=== PATIENT | male | born 1990 | race Caucasian/White ===

== ENCOUNTER 2017-11-12 18:56 | Inpatient (IN) | payer OTHER ==
[~2017-11-12] VITALS: Ht 177.8 cm; Wt 77.1 kg
[2017-11-12 19:15] VITALS: BP 105/84
[2017-11-12 19:54] LABS: HEMATOCRIT 47.8 % (42.0-52.0); HEMOGLOBIN 16.6 gm/dL (14.0-18.0); MCH 33.8 pg (26.0-34.0); MCHC 34.7 g/dL (28.0-37.0); MCV 97.5 fL (80.0-100.0); MPV 7.5 fl. (7.2-11.1); NUCLEATED RBCS 0 /100WBC; PLATELET COUNT* 160 thou/uL (150-400); RBC 4.91 mil/uL (4.50-6.00); RDW-CV 12.5 % (10.5-14.5); WBC 12.7 thou/uL (4.0-11.0)
[2017-11-12 20:14] LABS: POTASSIUM 3.8 mmol/L (3.5-5.1)
[2017-11-12 20:19] LABS: ABSOLUTE LYMPHOCYTES 0.5 thou/uL (0.8-5.3); ABSOLUTE MONOCYTES 0.3 thou/uL (0.0-1.2); ABSOLUTE NEUTROPHILS 11.9 thou/uL (1.6-8.1); ALBUMIN 4.3 g/dL (3.4-5.0); ATYPICAL LYMPHS 2 %; PLATELET ESTIMATE ADEQUATE; TOTAL BILIRUBIN 1.2 mg/dL (<0.1-1.0); TOTAL PROTEIN 8.3 g/dL (6.4-8.2)
[2017-11-12 22:10] LABS: URINE BILIRUBIN NEGATIVE (Negative); URINE BLOOD 1+ (Negative); URINE CLARITY CLEAR; URINE COLOR YELLOW; URINE GLUCOSE-RANDOM NEGATIVE (Negative); URINE KETONES TRACE (Negative); URINE LEUKOCYTES-REFLEX NEGATIVE (Negative); URINE NITRITE-REFLEX NEGATIVE (Negative); URINE PROTEIN 1+ (Negative); URINE UROBILINOGEN 0.2 E.U./dl (0.2-1.0)
[2017-11-12 22:19] LABS: BACTERIA-REFLEX None Seen /HPF (None Seen); CASTS None Seen /LPF (None Seen); SQUAMOUS 0-3 Few /LPF (0-3); URINE RBC 0-2 Rare /HPF (0-2); URINE WBC-REFLEX None Seen /HPF (0-5)
[2017-11-12 22:20] LABS: CRYSTALS None Seen /LPF (None Seen)
[2017-11-12 22:49] VITALS: BP 161/102
[2017-11-13] LABS: AMP/METHAMP Negative (Negative); BARBITURATES Negative (Negative); BENZODIAZEPINES Negative (Negative); COCAINE Negative (Negative); METHADONE Negative (Negative); OPIATES Negative (Negative); PCP Negative (Negative); THC Negative (Negative)
[2017-11-13 03:46] VITALS: BP 160/100
--- NOTE | 2017-11-13 06:57 | NUR ---
PATIENT ARRIVED ON UNIT AT 2300. ALERT AND ORIENTED TIMES FOUR. MOTHER AT BEDSIDE. PAIN MEDICATION IS NOT ENOUGH TO GIVE HIM RELIEF. NOTIFIED AND INCREASE IN PAIN MEDICATION ORDER RECEIVED. COMPLIANT WITH NPO STATUS. TOOK A SHOWER AND STATES THAT THIS HELPS. NO SKIN ISSUES. NURSING ASSESSMENT AND HOURLY ROUNDING COMPLETED DOCUMENTED
[2017-11-13 08:30] VITALS: BP 165/98
[2017-11-13 09:59] LABS: ALBUMIN 3.3 g/dL (3.4-5.0); CALCIUM 7.5 mg/dL (8.5-10.1); CREATININE 0.9 mg/dL (0.6-1.3); DIRECT BILIRUBIN 0.8 mg/dL (<0.1-0.3); MAGNESIUM 1.2 mg/dL (1.8-2.4); POTASSIUM 3.7 mmol/L (3.5-5.1); TOTAL BILIRUBIN 2.2 mg/dL (<0.1-1.0); TOTAL PROTEIN 6.7 g/dL (6.4-8.2)
[2017-11-13 16:00] VITALS: BP 142/105
--- NOTE | 2017-11-13 17:47 | NUR ---
ASSUMED CARES OF PT AT 0700. PT A&O X4, PAIN IN ABD R/T ALCOHOL PANCREATITIS. PAIN MANAGED WITH IVP DILAUDID Q2 HRS PRN. LCTAB, HRRR PER AUSCULTATION. NEW IV STARTED IN RIGHT AC 22 GAUGE AFTER LOSS OF ORIGINAL IV. NS AT 250 ML/HR, PRESENTLY HELD FOR BANANA BAG INFUSING AT 100 ML/HR. ZOFRAN FOR NAUSEA PRN. HYPERTENSIVE, NOTIFIED, WAITING ORDERS. AFEBRILE, CIWA Q HR X 8 COMPLETED, SEE DOCUMENTATION. LABS MONITORED. PT UP AT ANGELLA AT THIS TIME, STABLE. MILD ITCHING VERBALIZED. FAMILY IN ROOM WITH PT MOST OF SHIFT. SKIN INTACT. WILL CONTINUE TO MONITOR PT FOR ALCOHOL WITHDRAWAL SYMPTOMS. NPO AT THIS TIME, ICE CHIPS AND SMALL SIPS OF WATER ALLOWED. WILL CONTINUE TO MONITOR PT STATUS. HOURLY ROUNDING CONTINUES.
--- NOTE | 2017-11-13 19:16 | NUR ---
PT REMAINS STABLE, CONSTANT PAIN IN GENERALIZED ABD, SOME RADIATING TO BACK R/T ACUTE PANCREATITIS. PT REPORTS HEAVY ALCOHOL USE. PT B/P ELEVATED/HYPERTENSIVE, REPORTED TO MD VIA YOU CALL, WAITING ORDERS. NO ALCOHOL WITHDRAWAL SYMPTOMS OTHER THAN SOME ITCHING REPORTED BY PT, PT STATED IT IS TOLERABLE AT THIS TIME. FAMILY AT BEDSIDE MOST OF DAY. O2 RA WNL. HR TACHYCARDIA VIA AUSCULTATION, REPORTED TO MD VIA YOU CALL. IV IN RIGHT AC PATENT WITH FLUIDS INFUSING, BANANA BAG AT 80 ML/HR, ONE OF THREE PRESENTLY INFUSING. REPORT TO BIT TAPPER FOR CONTINUED CARES AND MONITORING.
--- NOTE | 2017-11-13 19:24 | NUR ---
MD ORDERS FOR PT HYPERTENSION ADDED TO MAR, METOPROLOL AND HYDRALAZINE. VS TO BE TAKEN AND MEDS GIVEN ORDERED.
[2017-11-13 20:00] VITALS: BP 138/97
[2017-11-14] VITALS (11 sets, daily range): BP systolic 105–154; BP diastolic 62–104
[2017-11-14 04:42] LABS: HEMATOCRIT 39.9 % (42.0-52.0); MCH 33.9 pg (26.0-34.0); MCHC 34.6 g/dL (28.0-37.0); MCV 98.1 fL (80.0-100.0); MPV 8.4 fl. (7.2-11.1); RBC 4.07 mil/uL (4.50-6.00); RDW-CV 12.4 % (10.5-14.5); WBC 9.8 thou/uL (4.0-11.0)
[2017-11-14 04:54] LABS: HEMOGLOBIN 13.8 gm/dL (14.0-18.0)
[2017-11-14 05:26] LABS: ALBUMIN 2.8 g/dL (3.4-5.0); CALCIUM 7.1 mg/dL (8.5-10.1); CREATININE 0.9 mg/dL (0.6-1.3); MAGNESIUM 1.4 mg/dL (1.8-2.4); POTASSIUM 3.5 mmol/L (3.5-5.1); TOTAL BILIRUBIN 1.9 mg/dL (<0.1-1.0); TOTAL PROTEIN 5.5 g/dL (6.4-8.2)
--- NOTE | 2017-11-14 05:43 | NUR ---
DR. RHODES NOTIFIED OF PATIENTS CHANGE IN MENTAL STATUS D/T ALCOHOL WITHDRAWAL. PATIENT TRANSFERRED TO ICU AT APPROXIMATELY [address] RHODES. REPORT CALLED TO ICU NURSE. NURSING TO CONTINUE TO MONITOR.
[2017-11-14 11:18] LABS: ALBUMIN 2.9 g/dL (3.4-5.0); DIRECT BILIRUBIN 1.2 mg/dL (<0.1-0.3); TOTAL BILIRUBIN 1.9 mg/dL (<0.1-1.0); TOTAL PROTEIN 5.6 g/dL (6.4-8.2)
--- NOTE | 2017-11-14 19:06 | NUR ---
RECEIVED REPORT FROM LIBERTAD WARNER. ASSESSMENT CHARTED. AFEBRILE. PT VITALS STABLE. ADEQAUTE URINE OUTPUT. PT IN RESTRAINTS. STILL CONFUSED AND COMABATIVE. REPORT GIVEN TO LIBERTAD CHÁVEZ.
[2017-11-14 22:15] LABS: BE 0.5 mmol/L (-2 to +3); HCO3 22.7 mmol/L (22.0-26.0); PCO2 29.7 mmHg (35.0-45.0); pH 7.501 (7.340-7.450)
[2017-11-14 22:16] LABS: PO2 146.6 mmHg (75.0-100.0)
[2017-11-15] VITALS (10 sets, daily range): BP systolic 89–145; BP diastolic 46–89
--- NOTE | 2017-11-15 00:48 | NUR ---
PT WAS INTUBATED AT 2014. VENT SETTINGS 600VT, 14 RATE, 5 PEEEP, FIO2 TITRATE. PT EXTREMELY AGGRESSIVE AND VIOLENT. RESTRAINTS NOT HOLDING PT. SPOKE WITH DR. COTA. DR. COTA RECOMMENDED INTUBATION TO ASSIST WITH WITHDRAW. MOTHER AT BEDSIDE. INTUBATION WAS EXPLAINED TO MOTHER, SHE STATED SHE UNDERSTOOD THE NEED TO INTUBATE. UNABLE TO ASSESS CIWA WHILE PT INTUBATED
[2017-11-15 04:27] LABS: HEMATOCRIT 35.7 % (42.0-52.0); HEMOGLOBIN 12.6 gm/dL (14.0-18.0); MCHC 35.4 g/dL (28.0-37.0); MCV 98.9 fL (80.0-100.0); MPV 8.5 fl. (7.2-11.1); RBC 3.61 mil/uL (4.50-6.00); RDW-CV 12.4 % (10.5-14.5); WBC 5.1 thou/uL (4.0-11.0)
[2017-11-15 04:59] LABS: ALBUMIN 2.1 g/dL (3.4-5.0); CREATININE 0.8 mg/dL (0.6-1.3); MAGNESIUM 1.5 mg/dL (1.8-2.4); TOTAL BILIRUBIN 1.3 mg/dL (<0.1-1.0); TOTAL PROTEIN 5.3 g/dL (6.4-8.2)
[2017-11-15 08:35] LABS: BE 0.2 mmol/L (-2 to +3); HCO3 25.9 mmol/L (22.0-26.0); PCO2 46.1 mmHg (35.0-45.0); PO2 70.4 mmHg (75.0-100.0); pH 7.367 (7.340-7.450)
--- NOTE | 2017-11-15 08:41 | NUR ---
RECEIVED REPORT FROM LIBERTAD CHÁVEZ. ASSESSMENT CHARTED. AFEBRILE. PT SEDATED AND INTUBATED ON VENT. PROPOFOL, ATIVAN AND FENTANYL GTT INFUSING. MEDS GIVEN. REPLACING ELECTROLYTES. WILL CONTINUE TO MONITOR.
[2017-11-15 11:12] LABS: HEMOGLOBIN 12.9 gm/dL (14.0-18.0); MCH 33.7 pg (26.0-34.0); MCHC 33.9 g/dL (28.0-37.0); MCV 99.5 fL (80.0-100.0); MPV 8.2 fl. (7.2-11.1); NUCLEATED RBCS 0 /100WBC; PLATELET COUNT* 90 thou/uL (150-400); RBC 3.82 mil/uL (4.50-6.00); RDW-CV 12.5 % (10.5-14.5); WBC 5.6 thou/uL (4.0-11.0)
[2017-11-15 11:17] LABS: URINE BLOOD 2+ (Negative); URINE CLARITY CLEAR; URINE COLOR DARK YELLOW; URINE GLUCOSE-RANDOM NEGATIVE (Negative); URINE LEUKOCYTES-REFLEX NEGATIVE (Negative); URINE NITRITE-REFLEX NEGATIVE (Negative); URINE PROTEIN 2+ (Negative); URINE SPECIFIC GRAVITY >= 1.030 (1.005-1.030)
[2017-11-15 11:21] LABS: ACETEST (KETONE CONFIRMATORY) Large (Negative); ICTOTEST (BILI CONFIRMATORY) Positive (Negative); URINE BILIRUBIN 2+ (Negative); URINE KETONES 3+ (Negative)
[2017-11-15 11:23] LABS: APTT 32.9 Seconds (25.0-31.3); INR 1.1; PROTIME 10.8 Seconds (9.20-11.50)
[2017-11-15 11:26] LABS: MUCUS 4-6 Moderate strn/LPF (None Seen)
[2017-11-15 11:27] LABS: COARSE GRANULAR CASTS 0-3 Few /LPF (None Seen); CRYSTALS None Seen /LPF (None Seen); FINE GRANULAR CASTS 0-3 Few /LPF (None Seen); HYALINE CASTS 0-3 Few /LPF (None Seen); SQUAMOUS 0-3 Few /LPF (0-3)
[2017-11-15 11:28] LABS: URINE WBC-REFLEX 6-15 Few /HPF (0-5)
[2017-11-15 11:29] LABS: MAGNESIUM 1.5 mg/dL (1.8-2.4); PHOSPHORUS* 1.9 mg/dL (2.5-4.9)
[2017-11-15 11:29] LABS: BACTERIA-REFLEX 1-9 Few /HPF (None Seen)
[2017-11-15 11:44] LABS: ABSOLUTE LYMPHOCYTES 1.2 thou/uL (0.8-5.3); ABSOLUTE MONOCYTES 0.3 thou/uL (0.0-1.2); ABSOLUTE NEUTROPHILS 4.1 thou/uL (1.6-8.1); METAMYELOCYTES 1 %; PLATELET ESTIMATE DECREASED
--- NOTE | 2017-11-15 19:54 | NUR ---
CONSULTED TO PLACE PICC FOR ICU PT ORDERED. CONSENT OBTAINED PRIOR TO ARRIVAL, PT SEDATED ON VENT. PT ASSESSED WITH ULTRASOUND AND CECIL BASILIC FOUND TO BE WIDELY PATENT. LINE TRIMMED TO 45 CM AND PLACED PER FACILITY POLICY WITH 3 CM EXTERNAL. LINE PLACEMENT CONFIRMED WITH 3CG AND RELEASED FOR IMMEDIATE USE. PT BED LOWERED TO LOWEST POSITION, RESTRAINT RE-APPLIED ON RIGHT WRIST. NO ACUTE DISTRESS NOTED.
[2017-11-16] VITALS (13 sets, daily range): BP systolic 96–116; BP diastolic 50–63
[2017-11-16 05:03] LABS: BE -6.4 mmol/L (-2 to +3); HCO3 20.6 mmol/L (22.0-26.0); PO2 79.7 mmHg (75.0-100.0)
[2017-11-16 05:13] LABS: HEMATOCRIT 34.4 % (42.0-52.0); HEMOGLOBIN 11.8 gm/dL (14.0-18.0); MCH 34.2 pg (26.0-34.0); MCHC 34.4 g/dL (28.0-37.0); MCV 99.4 fL (80.0-100.0); MPV 8.5 fl. (7.2-11.1); RBC 3.46 mil/uL (4.50-6.00); RDW-CV 12.2 % (10.5-14.5); WBC 7.8 thou/uL (4.0-11.0)
[2017-11-16 05:22] LABS: ALBUMIN 1.8 g/dL (3.4-5.0); CALCIUM 7.4 mg/dL (8.5-10.1); CREATININE 1.2 mg/dL (0.6-1.3); POTASSIUM 3.4 mmol/L (3.5-5.1); TOTAL BILIRUBIN 1.6 mg/dL (<0.1-1.0); TOTAL PROTEIN 5.4 g/dL (6.4-8.2)
--- NOTE | 2017-11-16 10:15 | NUR ---
PT TRANSFERRED TO ICU ON 11/14 AND INTUBATED. REMAINS ON VENT. NO FAMILY HERE AT THIS TIME. CASE MGT TO CONTINUE TO FOLLOW.
--- NOTE | 2017-11-16 11:49 | CON ---
[address] [address] CONSULTATION Name: WILL MARQUIS Room: [address] IN M.R.#: [id number] Admission: 11/12/17 Attend Phys: Nguyễn Millard MD Discharge: Date of : 90 Report #: [id number] THIS REPORT FOR: //name// CC: MARILIA physician/PCP Nguyễn Millard DATE OF SERVICE: 11/16/2017 INFECTIOUS DISEASE CONSULTATION ATTENDING PHYSICIAN: Nguyễn Millard M.D. REASON FOR EVALUATION: Acute pancreatitis in the setting of ethanol excess, also has onset of nosocomial-related fevers. HISTORY OF PRESENT ILLNESS: Chart reviewed, the patient examined. This is a 27-year-old without significant medical history, although he is a heavy drinker, presented with abdominal-related pain that had been going on for several days. He did have associated diarrhea and episodes of vomiting. He noted, apparently at that time, had previous similar type pains. At that point, he had no fevers. He was admitted. On evaluation, he had a markedly elevated lipase. Imaging showed findings most consistent with acute pancreatitis, without evidence of peripancreatic or pancreatic abscess or pseudocyst. He was actually on the floor; however, it became apparent he was perhaps withdrawn and he became combative. He was transferred to the ICU and intubated to protect his airway. He did have a temperature elevation to 102 degrees Fahrenheit. At this point, he is sedated on the vent, started on Zosyn and levofloxacin. ALLERGIES: SULFA, WHICH CAUSES A RASH. CURRENT MEDICATIONS: Include enoxaparin, Zosyn, ipratropium and albuterol inhaler, levofloxacin, p.r.n. analgesics, antiemetics, metoprolol and famotidine. PAST MEDICAL HISTORY: Otherwise insignificant. SOCIAL HISTORY: Nonsmoker, heavy ethanol. FAMILY HISTORY: Noncontributory. REVIEW OF SYSTEMS: Not obtainable. PHYSICAL EXAMINATION: GENERAL: He is sedated on the vent. He is in mild distress. He does not have any sequelae that suggest chronic liver disease. VITAL SIGNS: Temperature 98.3, pulse 113, blood pressure 96/62 and respiratory [facility] [address] [place] [address] CONSULTATION Name: WILL MARQUIS Room: [address]#: [id number] Admission: 11/12/17 Attend Phys: Nguyễn Millard MD Discharge: Date of : 90 Report #: [id number] rate is 14. SKIN: Warm, appears somewhat pale. NECK: There seems to be some resistance. I do not think there is any overt meningismus. LUNGS: Diminished, few crackles. HEART: Tachycardic. I do not appreciate any murmur. ABDOMEN: Somewhat firm. I do not think there is overt rigidity or peritoneal signs. GENITOURINARY: Deferred. RECTAL: Deferred. LABORATORY DATA: Chest x-ray, possible small right pleural effusion and some basilar infiltrates. Blood cultures sterile thus far. Sputum cultures pending. Gram stain with mixed ricco. Electrolytes: Sodium 143, potassium 3.4, chloride 109, bicarb 22, anion gap of 12, BUN and creatinine 8 and 1.2 and glucose of 91. AST 144; ALT of 87 and total bilirubin was peaked at 2.2, now 1.6. Albumin 1.8, total protein 5.4. Lactic acid 0.7. Prealbumin 14.6. CBC: White count of 7.8, H and H 11.8 and 34.4 and platelets of 121,000. ABGs: A pH of 7.260, pCO2 of 47.0 and pO2 of 79.7 on 40%. TSH is 0.705. Sputum culture is pending. Urinalysis, 6-15 white cells. HIV screen was nonreactive. ASSESSMENT: Severe pancreatitis secondary to ethanol, may well have had previous episodes. Based on history I garnered, certainly risk for infectious complications with fevers may be attributed to the pancreatitis and likely a degree of hepatitis as well, can exclude pneumonitis. We will continue empiric therapy at this point and try to wean off as allowed, going through his withdrawal protocol. I will monitor expectantly. <ELECTRONICALLY SIGNED> By: Conor Guevara MD 11/16/17 1149 [id number] Guevara MD /nt
[2017-11-16 13:08] LABS: HEPATITIS B SURFACE AG Negative (Negative)
[2017-11-16 13:08] LABS: HBsAG-EMPLOYEE EXPOSURE Negative (Negative)
--- NOTE | 2017-11-16 18:45 | NUR ---
PT CARE ASSUMED AT 1030. ASSESSMENT CHARTED. VSS THROUGHOUT THE SHIFT. TOLERATING TF WITHOUT ANY RESIDUAL. Q2H TURNS TO MAINTAIN SKIN INTEGRITY. PT'S FEET AND HANDS NOTED TO BE RED AND WARM, PATIENT FLUSHED. THIS INFORMATION GIVEN TO MD WITH NO NEW ORDERS. WILL CONTINUE TO MONITOR.
[2017-11-17] VITALS (16 sets, daily range): BP systolic 118–148; BP diastolic 67–97
[2017-11-17 04:15] LABS: HEMOGLOBIN 11.2 gm/dL (14.0-18.0); MCV 99.8 fL (80.0-100.0); RBC 3.31 mil/uL (4.50-6.00); RDW-CV 12.5 % (10.5-14.5); WBC 7.3 thou/uL (4.0-11.0)
[2017-11-17 04:39] LABS: ALBUMIN 1.8 g/dL (3.4-5.0); CALCIUM 7.8 mg/dL (8.5-10.1); CREATININE 1.1 mg/dL (0.6-1.3); MAGNESIUM 2.1 mg/dL (1.8-2.4); POTASSIUM 3.3 mmol/L (3.5-5.1); TOTAL BILIRUBIN 0.9 mg/dL (<0.1-1.0); TOTAL PROTEIN 5.8 g/dL (6.4-8.2)
--- NOTE | 2017-11-17 05:44 | NUR ---
PT. PROGRESSING WELL TOWARDS GOALS. ATTEMPT TO TURN OFF PROPOFOL GTT THIS THIS SHIFT, PT. DID NOT TOLERATE WELL, RESTLESS, PROPOFOL TURNED BACK ON AT 20MCG/KG/MIN. COMPLETE BED BATH GIVEN. FLEXISEAL REMAINS IN PLACE. RESTRAINTS IN PLACE. WILL CONTINUE TO MONITOR.
[2017-11-17 05:57] LABS: BE -2.4 mmol/L (-2 to +3); HCO3 22.2 mmol/L (22.0-26.0); PCO2 37.5 mmHg (35.0-45.0); PO2 103.2 mmHg (75.0-100.0)
--- NOTE | 2017-11-17 10:52 | CON ---
[facility] [address] [place] [address] CONSULTATION Name: WILL MARQUIS Room: [address] IN .R#: [id number] Admission: 11/12/17 Attend Phys: Nguyễn Millard MD Discharge: Date of : 90 Report #: [id number] THIS REPORT FOR: //name// CC: FAM physician/PCP Nguyễn Millard DATE OF SERVICE: 11/15/2017 REFERRING PHYSICIAN: Nguyễn Millard M.D. CHIEF COMPLAINT: Respiratory failure. HISTORY OF PRESENT ILLNESS: The patient is a 27-year-old male who was admitted to the hospital on the above given day with abdominal symptoms of nausea, vomiting, and abdominal pain. He was admitted to the hospital, was found to have pancreatitis. He is an alcoholic and drinks heavily. He was being controlled with IV fluids and pain medication. Unfortunately, the patient started to have problems with withdrawal and became quite combative. He required intubation on the night nurse. We were asked to participate in his care. The patient is sedated. He is intubated. He is currently on a fentanyl and propofol drip. REVIEW OF SYSTEMS: Not obtainable. PAST MEDICAL HISTORY: None. SOCIAL HISTORY: He is a heavy drinker. There is no history of tobacco abuse. FAMILY HISTORY: Negative, without any family ailments per the records. ALLERGIES: None known. MEDICATIONS PRIOR TO ADMISSION: None. PHYSICAL EXAMINATION: VITAL SIGNS: His I and O in the last 24 hours was 4.0 liters in, 1.7 liters out. Blood pressure 118/72, respiratory rate 13 nonlabored, pulse rate sinus tachycardia 114, temperature was 101.3 degrees. His weight is 183 pounds. GENERAL APPEARANCE: He is intubated orally. He is sedated as outlined above with the above medications, i.e. propofol/fentanyl. HEAD: Atraumatic. EYES: Pupils are pinpoint. No real reaction with light, although too small to tell. No scleral icterus or edema. EARS: There is no drainage from the auditory canals[place] [address] CONSULTATION Name: WILL MARQUIS Room: [address]#: [id number] Admission: 11/12/17 Attend Phys: Nguyễn Millard MD Discharge: Date of : 90 Report #: [id number] normal. NOSE: Nasal passages are patent. ORAL CAVITY: Endotracheal tube is placed orally and secured. NECK: No adenopathy. No subcutaneous emphysema. CHEST: Clear bilaterally, diminished breath sounds. CARDIOVASCULAR: Regular rhythm. Sinus tachycardia. ABDOMEN: Slightly tense. There is no rebound. No guarding. EXTREMITIES: There is no evidence of edema, clubbing or cyanosis. NEUROLOGIC: He is sedated. No pathologic reflexes. SKIN: Warm and dry, no rash. LABORATORY DATA: Most recent electrolytes today are sodium 140, potassium 3.0. He is getting potassium replacement. Chloride is 106, CO2 of 26, BUN 7, creatinine 0.8. The SGOT is elevated at 159, total bilirubin slightly increased 1.3, magnesium 1.5, slightly low. Protein and albumin are low. EGFR 116. Alcohol level on admission 173. Ammonia level 11 on admission. His GGTP on admission 2020. Urinary drug screen was negative. Lipase on admission was 8668, 2200 last evening. Arterial blood gas revealed a pH 7.50, pCO2 of 29, pO2 of 146, bicarbonate 22 while on 600 tidal volume, CMV of 14, FiO2 of 60%, PEEP of 5. Today, his hemoglobin and hematocrit are 12.6 and 36 with a white count 5100. Chest x-ray revealed ET tube to be in adequate positioning. There is some poor inspiratory effort. There is some left lower lobe atelectatic process, maybe effusion development. ASSESSMENT: 1. Acute alcohol withdrawal. 2. Alcohol intoxication. 3. Pancreatitis. 4. Respiratory failure, intubated for airway protection. 5. Left lower lobe atelectasis and/or development of effusion/pneumonia. 6. Pancreatitis. RECOMMENDATION: Continue ventilator support, sedation as well. Followup ABGs, chest x-ray in the a.m. Adjustments on the ventilator accordingly. The patient is febrile also, has a temperature, we will obtain cultures. We will defer antibiotic coverage to the hospitalist group at this time. Infectious Disease consult may be warranted at some point. Because of the process in the left lower lobe, we will get sputum for culture and sensitivity, and also will initiate aerosol treatments. <ELECTRONICALLY SIGNED> By: Travis Zaragoza MD 11/17/17 1052 0805 [id number] Rios MD /nt
--- NOTE | 2017-11-17 11:23 | NUR ---
PT REMAINS SEDATED ON THE VENT. SPOKE WITH AND MOTHER AT BEDSIDE. SAID PT DRINKS REGULARLY BUT IT HAS NEVER INTERFERRED WITH HIS GOING TO WORK, ETC. SHE SAID HE HAS QUIT DRINKING IN THE PAST, WITH ONLY MILD WITHDRAWL SYMPTOMS. SHE IS HOPEFUL HE WILL AGREE TO ALCOHOL REHAB AFTER THIS ADMISSION. SHE UNDERSTANDS THAT PT HAS TO AGREE TO TREATMENT. FAMILY IS ALL SUPPORTIVE OF HIM GETTING HELP. IS AWARE THAT IF PT REFUSES ALCOHOL TREATMENT WHEN HE IS DISCHARGED, BUT DECIDES LATER HE WANTS HELP, IT CAN STILL BE ARRANGED. WILL PROVIDE AND MOTHER WITH ALCOHOL TREATMENT OPTIONS SO THEY HAVE THE INFORMAION IF THEY NEED IT LATER. DISCUSSED ROLE OF CASE MGT, WILL CONTINUE TO FOLLOW.
--- NOTE | 2017-11-17 15:13 | NUR ---
DR BRAY GAVE ORDRE THAT OK TO GO UP TO 40 ML ON TUBE FEEDING IF NOT EXTUBATED TODAY. PATIENT DID WELL ON 30 MINUTE TRIAL, INTERMITTENTLY FOLLOWED COMMANDS. FENTANYL AND VERSED D/C AND ATIVAN PUSHES AND FENTANYL PUSHES TO SUBSTITUE WITH PROPOFOL GTT. PATIENT RESTING AT THIS TIME. FAMILY AT BEDSIDE AND UPDATED.
--- NOTE | 2017-11-17 15:47 | CON ---
[address] [address] CONSULTATION Name: WILL MARQUIS Room: [address] IN ..#: [id number] Admission: 11/12/17 Attend Phys: Nguyễn Millard MD Discharge: Date of : 90 Report #: [id number] THIS REPORT FOR: //name// CC: MARILIA physician/PCP Nguyễn Millard DICTATED BY: Clari Flores [facility] DATE OF SERVICE: 11/13/2017 The patient currently does not have a PCP. Please note at the time of this dictation, the patient was seen and physically examined by myself. REASON FOR CONSULTATION: Abdominal pain and pancreatitis. HISTORY OF PRESENT ILLNESS: This is a 27-year-old male who presented to the Emergency Room after having 24 hours of intractable epigastric pain. He rated it 10/10. It was gnawing and radiating into his back. He had nausea, vomiting and some significant diarrhea. He states he drinks about 10 shots a day, which he started probably at the age of 21 and it is gradually escalated. Him and his recently bought a house, they had a son and so they have been in a more celebratory mode and he will drink even more so on the weekends than what he currently does. On admission, his blood alcohol level was 173. The patient has never had a problem with this before. This is his first bout of pancreatitis. The patient states he is not having any nausea or vomiting, still having pain at this time. His bowels moved yesterday, but no longer any more diarrhea like they were yesterday. ALLERGIES: SULFA. MEDICATIONS: From home are none. PAST MEDICAL HISTORY: Negative. PAST SURGICAL HISTORY: Negative. FAMILY HISTORY: Noncontributory. SOCIAL HISTORY: He does not do any illegal drug use, does not smoke, but alcohol use, he has 10 shots of vodka daily and more on the weekend. REVIEW OF SYSTEMS: Twelve-point review of systems is essentially negative except what is [place] [address] CONSULTATION Name: WILL MARQUIS Room: [address] IN [facility]#: [id number] Admission: 11/12/17 Attend Phys: Nguyễn Millard MD Discharge: Date of : 90 Report #: [id number] PHYSICAL EXAMINATION: VITAL SIGNS: Temperature 36.5, pulse 111, respirations 18 and blood pressure 165/98. HEART: Regular rate and rhythm. LUNGS: Clear, but diminished. ABDOMEN: Soft, positive bowel sounds in all 4 quadrants with some tenderness noted in the left upper quadrant area. LABORATORY DATA: Hemoglobin 16.6, hematocrit 47.8, white count is 12.7, platelets is 160. Sodium 139, potassium 3.6, chloride 104, CO2 of 25, BUN is 10, creatinine 0.9, glucose is 134, GFR is 110, lipase was 8668 and his GFR was ____. Total bilirubin on admission was 1.2 and it is 2.2 now. Alkaline phosphatase 85, ALT is 148 and was 235, AST is [address] of the abdomen and pelvis showed diffuse fatty liver with ill definition of soft tissue inflammatory stranding within to and adjacent to the pancreas with peripancreatic fluid and edema noted consistent with pancreatitis. No pseudocysts have been noted. IMPRESSION: 1. Pancreatitis. 2. Abdominal pain. 3. Alcohol abuse. 4. Elevated LFTs. PLAN: 1. Fluids continue at 250. 2. Advance diet to clear liquids. 3. Discussed with patient the need to abstain from alcohol altogether. 4. We will continue to follow. Thank you for allowing us to participate in this patient's care. Please do not hesitate to call with any questions in regard to this consult. <ELECTRONICALLY SIGNED> By: Anastasia Juarez MD 11/17/17 1547 [id number] Juarez MD /nt
--- NOTE | 2017-11-17 18:23 | NUR ---
PATIENT DID WELL ON BREATHING TRIAL BUT COULDNT QUITE WAKE UP ENOUGH TO FOLLOW ALL COMMANDS. ANOTHER TRIAL IN THE AM WITH ABG TO FOLLOW. PATIENT HAS PROPOFOL GTT FOR SEDATION AND ATIVAN AND FENTANYL PUSHES PRN. PATIENT IS RESTING COMFORTABLY AT THIS TIME. FAMILY HAS GONE HOME FOR THE NIGHT. NO APPARENT PAIN AT THIS TIME. BLOOD BANK CALENDAR CONTROL CLERK IN PLACE, BED IN LOWEST POSITION, BED ALARM ON, RESTRAINTS REMAIN IN PLACE FOR SAFTEY.
[2017-11-18] VITALS (25 sets, daily range): BP systolic 124–168; BP diastolic 71–115
--- NOTE | 2017-11-18 05:30 | NUR ---
SLOW PROGRESSION TOWARDS GOALS, SEE COMPUTERIZED ASSESSMENT DOCUMENTATION FOR FURTHER DETAILS, EASILY AGITATED WITH TACTILE STIMULATION, ATIVAN 3MG IVP GIVEN X2 WITH SOMEWHAT EFFECTIVE SEDATIVE RESULTS NOTED, NSR/ST TRACING MANAGEMENT ACCOUNTS MANAGER, NO CHANGE IN VENTILATOR SETTINGS DURING NOC BY RT, AFEBRILE, REMAINS ON PROPOFOL GTT FOR SEDATION, INCREASED PROPOFOL GTT FROM 20MCG/KG/MIN TO 40MCG/KG/MIN THIS SHIFT FOR RASS SCORE -2, TOLERATING ISOSOURCE 1.5 VIA OG AT GOAL RATE 40CC/HR PER TUBE FEEDING PUMP ORDERED, FLEXISEAL PATENT TO LOOSE LIGHT BROWN STOOL, INTERMITTENT LEAKAGE NOTED AROUND FLEXISEAL, FULL BED BATH WITH BARRIER CREAM TO COCCYX TO PREVENT SKIN BREAKDOWN, MORRIS CATHETER PATENT TO DD CHLOE CLEAR 550CC URINE, BED REMAINS IN LOW AND LOCKED POSITON.
--- NOTE | 2017-11-18 06:09 | NUR ---
SEDATION VACATION START TIME 604, PROPOFOL OFF AT THIS TIME, B/P 150/94, HR 79, RESP 18 WITH SA02 97% ON ORDERED VENTILATOR SETTINGS.
[2017-11-18 06:14] LABS: HEMATOCRIT 31.9 % (42.0-52.0); HEMOGLOBIN 10.9 gm/dL (14.0-18.0); MCH 33.5 pg (26.0-34.0); MCHC 34.1 g/dL (28.0-37.0); MCV 98.2 fL (80.0-100.0); MPV 7.8 fl. (7.2-11.1); RBC 3.25 mil/uL (4.50-6.00); RDW-CV 12.2 % (10.5-14.5); WBC 11.3 thou/uL (4.0-11.0)
--- NOTE | 2017-11-18 06:17 | NUR ---
WHEN PT ISN'T ON BI PAP, IE TO CHANGE MASK. PT IS APNEIC. MILTON PATRICE IS CALLING HER SIBLINGS WITH AN UPDATE. THE DAUGHTER MAY WANT TO D/C BI PAP.
[2017-11-18 06:41] LABS: ALBUMIN 1.9 g/dL (3.4-5.0); CALCIUM 7.9 mg/dL (8.5-10.1); MAGNESIUM 2.4 mg/dL (1.8-2.4); TOTAL PROTEIN 5.8 g/dL (6.4-8.2)
[2017-11-18 06:43] LABS: POTASSIUM 2.8 mmol/L (3.5-5.1)
[2017-11-18 10:11] LABS: BE 1.5 mmol/L (-2 to +3); HCO3 24.1 mmol/L (22.0-26.0); PCO2 31.8 mmHg (35.0-45.0); PO2 67.3 mmHg (75.0-100.0); pH 7.498 (7.340-7.450)
--- NOTE | 2017-11-18 11:58 | NUR ---
PT EXTUBATED THIS MORNING, FAMILY AT THE BEDSIDE. PT RESPONDING TO QUESTIONS. WHEN PT MORE AWAKE AND ALERT WILL DISCUSS ALCOHOL TREATMENT OPTIONS.
--- NOTE | 2017-11-18 12:21 | NUR ---
PATIENT IS EXTREMELY AGITATED AFTER EXTUBATION AROUND 1030. ABG PENDING WILL CALL RESULTS TO DR OCASIO. FAMILY AT BEDSIDE HELPING WITH KEEPING PATIENT CALM. VERY RESTLESS. BREATHING IN THE 40S AND 50S ON 50% VENTI MASK.
[2017-11-18 12:31] LABS: BE 4.4 mmol/L (-2 to +3); HCO3 27.3 mmol/L (22.0-26.0); PCO2 34.7 mmHg (35.0-45.0); pH 7.514 (7.340-7.450)
[2017-11-18 12:33] LABS: PO2 54.7 mmHg (75.0-100.0)
--- NOTE | 2017-11-18 14:39 | NUR ---
Patient confused, lethargic, agitated and unable to calm. lorazepam not helping with agitation and patient was breathing in the 60's and 70's. Called Dr Rios and updated on patient status, orders to reintubate.
--- NOTE | 2017-11-18 14:40 | NUR ---
PATIENT REINTUBATED AROUND 1440 TODAY. PATIENT HAD STARTED ON VENTI MASK THEN WENT TO NON-REBREATHER, SATS WERE DROPPING. PATIENT CONTINUED TO INCEASE RESPIRATIONS, ATIVAN GIVEN TO HELP, DOSES INCREASED MULTIPLE TIMES.
--- NOTE | 2017-11-18 18:03 | NUR ---
PATIENT IS MORE CALM AND COMFORTABLE ON VENTILATOR. ULTRASOUND DONE TO RIGHT SIDE AND FLUID CAN BE ASPRIATED OFF. PROPOFOL GTT IS ON AT THIS TIME. FAMILY AT BEDSIDE AND UPDATED. PATIENT CIWA WAS 23 BEFORE INTUBATION. ATIVAN PRN TO HELP KEEP PATIENT CALM. TUBE FEEDING RESTARTED, RESTRAINTS REAPPLIED AND NEW ORDER OBTAINED. BED IN LOWEST POSITION, CHIEF OF POLICE IN PLACE. BED ALARM ON.
--- NOTE | 2017-11-18 20:30 | NUR ---
PT FEBRILE 101.3 ORAL, SKIN HOT TO TOUCH AND FLUSHED, FAN IN USE TO ASSIST WITH HYPERTHERMIA, CALLED AND SPOKE WITH DR MULLER SQL DATABASE DEVELOPER FOR DR BEARD, UPDATED ON CHANGE IN CONDITION INCLUDING NEW FEBRILE ONSET, NEW ORDERS RECEIVED PERIPHERAL BCX1, MERREM 1GM TID, AND TYLENOL 650MG RECTAL Q6PRN FOR FEVER, WILL INITATE ORDERS, COMMUNICATE NEW ORDERS WITH PTS MOTHER AND CONTINUE TO MONITOR.
[2017-11-19] VITALS (14 sets, daily range): BP systolic 129–176; BP diastolic 62–100
[2017-11-19 04:33] LABS: BE 4.7 mmol/L (-2 to +3); HCO3 27.7 mmol/L (22.0-26.0); PCO2 35.7 mmHg (35.0-45.0); PO2 88.5 mmHg (75.0-100.0); pH 7.508 (7.340-7.450)
[2017-11-19 04:59] LABS: HEMATOCRIT 32.5 % (42.0-52.0); HEMOGLOBIN 11.3 gm/dL (14.0-18.0); MCH 34.1 pg (26.0-34.0); MCHC 34.7 g/dL (28.0-37.0); MPV 7.8 fl. (7.2-11.1); NUCLEATED RBCS 0 /100WBC; RBC 3.32 mil/uL (4.50-6.00); RDW-CV 12.5 % (10.5-14.5); WBC 17.2 thou/uL (4.0-11.0)
[2017-11-19 05:22] LABS: PLATELET COUNT* 339 thou/uL (150-400)
--- NOTE | 2017-11-19 06:00 | NUR ---
MINIMAL PROGRESSION TOWARDS GOALS, SEE COMPUTERIZED ASSESSMENT CHARTING FOR FURTHER DETAILS, SR/ST TRACING QUALITY REVIEWER, NO CHANGE IN VENTILATOR SETTINGS DURING NOC BY RT, TOLERATING ISOSOURCE 1.5 AT GOAL RATE 40CC/HR VIA TUBE FEEDING PUMP THROUGH OG, COPIOUS AMOUNT THICK CLEAR ORAL SECRETIONS SUCTIONED VIA ORAL CAVITY PRN, FULL BED BATH GIVEN, COCCYX REDDENED/BLANCHABLE, APPLIED BARRIER CREAM AND COVERED WITH MEPILEX FOAM FOR PROTECTION, COOL AIR LOSS BED IN USE, NO ADVERSE EFFECTS IV ABT, PROPOFOL 70MCG/KG/MIN VIA INFUSION PUMP FOR SEDATION. BED REMAINS IN LOW AND LOCKED POSITION, HOURLY ROUNDING DONE PER POLICY. BED ALARM FOR SAFETY.
[2017-11-19 06:18] LABS: POTASSIUM 2.8 mmol/L (3.5-5.1)
[2017-11-19 06:21] LABS: TOTAL PROTEIN 4.8 g/dL (6.4-8.2)
[2017-11-19 06:40] LABS: ABSOLUTE LYMPHOCYTES 1.4 thou/uL (0.8-5.3); ABSOLUTE MONOCYTES 0.5 thou/uL (0.0-1.2); ABSOLUTE NEUTROPHILS 15.3 thou/uL (1.6-8.1); METAMYELOCYTES 1 %; MYELOCYTES 3 %; PLATELET ESTIMATE ADEQUATE; TOXIC GRANULATION 2+
[2017-11-19 06:41] LABS: ANISOCYTOSIS 1+; HYPOCHROMASIA 1+; POIKILOCYTOSIS 1+
[2017-11-19 09:52] LABS: BE 4.1 mmol/L (-2 to +3); HCO3 27.9 mmol/L (22.0-26.0); PO2 63.6 mmHg (75.0-100.0); pH 7.473 (7.340-7.450)
--- NOTE | 2017-11-19 11:53 | EEG ---
[address] [address] EEG STUDY REPORT Name: MARQUISWILL Room: [address] IN .R#: [id number] Admission: 11/12/17 Attend Phys: Nguyễn Millard MD Discharge: Date of : 90 Report #: [id number] THIS REPORT FOR: //name// CC: FAM physician/PCP Nguyễn Millard DATE OF SERVICE: 11/16/2017 This patient is being evaluated for altered mental status. EEG was done by placing the electrodes by standard 10-20 system of electrode placement. Both referential and sequential montages were used for recording. Background activity in this patient's EEG appeared to be about 7-8 Hz. That is a symmetrical activity. Photic stimulation is unremarkable. It is not possible to tell when patient is asleep or awake because the patient is on sedation. Throughout the record, no active epileptiform activity was noted. IMPRESSION: This patient's EEG is slow and poorly formed. That is a nonspecific abnormality, which can occur with encephalopathy, effect of psychotropic medication, dementia, etc. Clinical correlation is recommended. Thank you very much for this referral. <ELECTRONICALLY SIGNED> By: Ernesto Mendoza MD 11/19/17 1153 1551 [id number] Mendoza MD /nt
--- NOTE | 2017-11-19 11:53 | CON ---
[address] [address] CONSULTATION Name: WILL MARQUIS Room: [address] ADM IN .R.#: [id number] Admission: 11/12/17 Attend Phys: Nguyễn Millard MD Discharge: Date of : 90 Report #: [id number] THIS REPORT FOR: //name// CC: MARILIA physician/PCP Nguyễn Millard DATE OF SERVICE: 11/15/2017 HISTORY OF PRESENT ILLNESS: This is a 27-year-old male patient who is not able to provide any history. This patient is intubated and is on vent. The mother is here. She provides history. She does not live with him and he lives with his . Neurologically, it looks like this patient was admitted with abdominal pain. He was found to have alcoholic pancreatitis, which is treated by GI as well as admitting physician. Neurology consultation was requested to evaluate the patient for any neurological etiology for the patient's altered mental status. As mentioned above, no further history is available in this patient. REVIEW OF SYSTEMS: Indicate that this patient had some watery diarrhea. He became very agitated. He is intubated and he is on vent. He is being followed by multiple consultants. He works, but he drinks hard liquor every day. That was the relevant 14-point review of system, which is available from mother and from the chart. PAST MEDICAL HISTORY: Negative for stroke. FAMILY HISTORY: Negative for early age stroke. SOCIAL HISTORY: He drinks a large amount of alcohol. PHYSICAL EXAMINATION: Indicates he is sedated. His pupils are small. He has no meningeal sign. I cannot tell rest of the examination. He is intubated. He is on a vent. He is reasonably well-developed individual. His vital signs indicate a blood pressure of 95/52, respirations 14, pulse is 108, temperature is 99.0. He did have a temperature at onetime for which ID was consulted. LABORATORY DATA: His white count is 5.6. His lipase is markedly elevated. IMPRESSION: This patient's clinical presentation appeared to be consistent with encephalopathy. That is difficult to evaluate because this patient is sedated at the moment. I talked to the nurses and looks like the patient becomes agitated. He did have a CT scan of the head, which was reviewed and that was unremarkable. RECOMMENDATIONS: 1. We [place] [address] CONSULTATION Name: WILL MARQUIS Room: [address]#: [id number] Admission: 11/12/17 Attend Phys: Nguyễn Millard MD Discharge: Date of : 90 Report #: [id number] 2. If further prognostication is desired and the patient does not wake up, then we may do further workup to prognosticate the patient. 3. Presently, he needs mainly supportive care including cleared by multiple other consultants, which I will defer to you as well as other senior talent management consultant but we will get an EEG, but EEG and if further prognostication is desired, then we will follow up this patient and do that workup. Thank you very much for this referral and if you have any question, please feel free to contact me. <ELECTRONICALLY SIGNED> By: Ernesto Mendoza MD 11/19/17 1153 1726 [id number] Mendoza MD /nt
--- NOTE | 2017-11-19 18:48 | NUR ---
RECEIVED REPORT FROM LIBERTAD COREA. ASSESSMENTS CHARTED. LOW GRADE TEMP. PT TRANSPORTED TO CT TODAY. PT NOW VERSED AND FENTANYL FOR SEDATION. ONE TIME DOSE OF PROPOFOL GIVEN SO PT WAS ABLE TO GET A CT IMAGE. POTASSIUM BEING REPLACED. ADEQUATE URINE OUTPUT. FAMILY UPDATED ON PLAN OF CARE.
[2017-11-20] VITALS (12 sets, daily range): BP systolic 129–154; BP diastolic 62–95
[2017-11-20 03:22] LABS: ABSOLUTE EOSINOPHILS 0.1 thou/uL (0.0-0.7); ABSOLUTE LYMPHOCYTES 1.8 thou/uL (0.8-5.3); ABSOLUTE MONOCYTES 1.4 thou/uL (0.0-1.2); ABSOLUTE NEUTROPHILS 15.5 thou/uL (1.6-8.1); BASOPHILS 0.1 %; EOSINOPHILS 0.7 %; HEMATOCRIT 32.2 % (42.0-52.0); LYMPHOCYTES 9.4 %; MCHC 34.1 g/dL (28.0-37.0); MCV 96.8 fL (80.0-100.0); MONOCYTES 7.7 %; MPV 7.6 fl. (7.2-11.1); NUCLEATED RBCS 0 /100WBC; PLATELET COUNT* 282 thou/uL (150-400); POLYS 82.1 %; RBC 3.32 mil/uL (4.50-6.00); RDW-CV 12.6 % (10.5-14.5); WBC 18.9 thou/uL (4.0-11.0)
[2017-11-20 03:51] LABS: ALBUMIN 1.8 g/dL (3.4-5.0); CALCIUM 7.3 mg/dL (8.5-10.1); CREATININE 0.9 mg/dL (0.6-1.3); TOTAL BILIRUBIN 0.7 mg/dL (<0.1-1.0); TOTAL PROTEIN 5.6 g/dL (6.4-8.2)
[2017-11-20 03:52] LABS: POTASSIUM 2.8 mmol/L (3.5-5.1)
[2017-11-20 03:55] LABS: PREALBUMIN 13.8 mg/dL (18.0-35.7)
[2017-11-20 05:13] LABS: ESR (SEDRATE) 73 mm/hr (0-15)
--- NOTE | 2017-11-20 06:38 | NUR ---
MINIMAL PROGRESSION TOWARDS GOALS, NO CHANGE IN VENTILATOR SETTINGS DURING SHIFT BY RT, VERSED AND FENTANYL GTT VIA INFUSION PUMP AT MAX DOSE PER ORDER FOR SEDATION, PT RESTLESS, ANXIOUS, AND AGGITATED WITH CARES AT TIMES, HITTING AND KICKING STAFF WITH CARES WITH X4 SOFT RESTRAINTS IN USE, GRABBING AT TUBING IE SUCTION TUBING WITH ORAL CARE, HALIDOL IV GIVEN X1 PER ORDER FOR AGITATION, WITH MINIMAL EFFECTIVE RESULTS NOTED, CALM, QUIET, DARK ENVIORMENT PROVIDED, CDIFF SPECIMEN COLLECTED AND SENT TO LAB PER ORDER, DARK BROWN LIQUID STOOL DRAINING VIA FLEXISEAL, INCONTIENT OF BM LEAKING AROUND FECAL TUBE, PERICARE PROVIDED PRN, BARRIER CREAM APPLIED AFTER EACH INCONTINENT LOOSE STOOL, RESTING QUIETLEY WITH EYES CLOSED WITHOUT TACTILE OR VERBAL STIMULI, NSR/ST TRACING LAUNDRY ROOM ATTENDANT, STIMULATION B/P CUFF INFLATION INCREASED PT AGITATION, DIFFICULT TO OBTAIN AUTOMATIC B/P READING AT TIMES DUE TO PT CONTINOUS ARM MOVEMENT. MORRIS PATENT TO DD, POTASSIUM CRITICAL LOW THIS AM 2.8, POTASSIUM CHLORIDE 40MEQ IV VIA INFUSION PUMP TRANSFUSING AT PRESENT TIME FOR TOTAL REPLACEMENT DOSE 120MEQ TODAY PER ORDERED ELECTROLYTE PROTOCOL.
--- NOTE | 2017-11-20 08:59 | NUR ---
ASSUMED CARE OF PATIENT AFTER RECEIVING BEDSIDE REPORT. ASSESSMENT COMPLETED, VSS. PATIENT IS RESTLESS AND AGITATED. PRN'S PROVIDED PER MAR, PRN'S NOT SUCCESSFUL. CEMENT CONVEYOR OPERATOR IN PLACE, SINUS RHYTHM AND SINUS TACHYCARDIA NOTED. RESTRAINTS IN PLACE. BED ALARM ON. WILL CONTINUE TO MONITOR.
--- NOTE | 2017-11-20 17:26 | NUR ---
PATIENT AGITATED THROUGHOUT MOST OF SHIFT. PATIENT TO IR FOR THORACENTESIS AND [place] TUBE PLACEMENT. PATIENT BACK TO ROOM AND VERY AGITATED. PATIENT NOT REDIRECTABLE. PATIENT STILL REQUIRING PRN MEDICATIONS. PATIENT FEBRILE FOR MOST OF SHIFT. TUBE FEEDING RESTARTED. NEW GOAL OF 75ML/HR PER MOLD CLOSER HELPER. BEDSIDE REPORT TO BE GIVEN TO ONCOMING SHIFT.
[2017-11-21] VITALS (15 sets, daily range): BP systolic 113–141; BP diastolic 50–83
--- NOTE | 2017-11-21 02:20 | NUR ---
PT RESTLESS, IMPULSIVE, COMBATIVE, UNABLE TO BE REDIRECT, REMAINS IN EXTREMITY X4 SOFT RESTRAINTS PER ORDER, PT ATTEMPTED TO GET OUT OF BED FIGHTING AGAINST RESTRAINTS, PULLED NASAL JEJUNAL TUBE PLACEMENT NOTED FROM 107CM TO 100CM, ABLE TO ADVANCE NASAL JEJUNAL TUBE BACK TO ORIGINAL PLACEMENT WITHOUT RESISTANCE NOTED, INCREASED VERSED FROM 15MG/HR TO 20MG/HR FOR SEDATION TO DECREASE AGITATION, NASAL JENUNAL TUBE CLOGGED, UNABLE TO FLUSH WITH H20, PEPTAMIN AF TUBE FEEDING STOPPED, DR BRAY NOTIFIED VIA TELEPHONE, NEW ORDERS RECEIVED TO DC NASAL JEJUNAL TUBE, DR BRAY TO SEE PT IN AM AND RE-EVALUATE FOR FURTHER NUTRITIONAL TUBE PLACEMENT.
[2017-11-21 05:29] LABS: HEMATOCRIT 32.6 % (42.0-52.0); HEMOGLOBIN 11.3 gm/dL (14.0-18.0); MCH 33.3 pg (26.0-34.0); MCHC 34.7 g/dL (28.0-37.0); MCV 95.9 fL (80.0-100.0); NUCLEATED RBCS 0 /100WBC; PLATELET COUNT* 278 thou/uL (150-400); RDW-CV 12.8 % (10.5-14.5); WBC 21.8 thou/uL (4.0-11.0)
[2017-11-21 05:47] LABS: ALBUMIN 1.8 g/dL (3.4-5.0); CALCIUM 7.4 mg/dL (8.5-10.1); CREATININE 0.8 mg/dL (0.6-1.3); POTASSIUM 3.6 mmol/L (3.5-5.1); TOTAL BILIRUBIN 0.6 mg/dL (<0.1-1.0)
[2017-11-21 05:48] LABS: BE -1.9 mmol/L (-2 to +3); HCO3 21.5 mmol/L (22.0-26.0); PCO2 31.4 mmHg (35.0-45.0); PO2 82.6 mmHg (75.0-100.0); pH 7.453 (7.340-7.450)
[2017-11-21 06:54] LABS: ABSOLUTE MONOCYTES 2.4 thou/uL (0.0-1.2); ABSOLUTE NEUTROPHILS 17.4 thou/uL (1.6-8.1)
[2017-11-21 06:55] LABS: PLATELET ESTIMATE ADEQUATE
[2017-11-21 07:00] LABS: ANISOCYTOSIS 1+; POIKILOCYTOSIS 1+
[2017-11-21 14:07] LABS: BODY FLUID LDH 282 IU/L (()); BODY FLUID PROTEIN 2.1 g/dL (())
--- NOTE | 2017-11-21 17:47 | NUR ---
PATIENT HAS SOMEWHAT PROGRESSED WELL TOWARDS GOALS. WEANED A LITTLE DOWN ON SEDATION AND PATIENT REMAINS CALM AND COOPERATIVE MOST OF THE TIME. AND MOTHER HAVE BEEN AT BEDSIDE MOST OF THE DAY. PATIENT CONTINUES TO SPIKE FEVERS, TYLENOL GIVEN RECTALLY X2 TODAY. FEVER REDUCES WITH MEDICATION. FAN ON PATIENT AND TOWEL APPLIED TO FOREHEAD. DR BRAY HAS NOT ROUNDED ON PATIENT YET TODAY, STILL WAITING FOR ORDERS TO PUT DOWN NEW DOBHOFF OR H0LD OFF. BED IN LOWEST POSITION, BUSINESS CENTER ATTENDANT IN PLACE, WILL CONTINUE TO MONTIOR.
[2017-11-22] VITALS (15 sets, daily range): BP systolic 99–130; BP diastolic 45–68
[2017-11-22 03:39] LABS: HEMATOCRIT 28.6 % (42.0-52.0); HEMOGLOBIN 9.6 gm/dL (14.0-18.0); MCH 32.8 pg (26.0-34.0); MCHC 33.4 g/dL (28.0-37.0); MPV 7.5 fl. (7.2-11.1); RBC 2.92 mil/uL (4.50-6.00); RDW-CV 12.5 % (10.5-14.5); WBC 21.7 thou/uL (4.0-11.0)
[2017-11-22 04:03] LABS: ALBUMIN 1.5 g/dL (3.4-5.0); CALCIUM 6.8 mg/dL (8.5-10.1); CREATININE 0.7 mg/dL (0.6-1.3); MAGNESIUM 2.9 mg/dL (1.8-2.4); POTASSIUM 3.2 mmol/L (3.5-5.1); TOTAL BILIRUBIN 0.5 mg/dL (<0.1-1.0); TOTAL PROTEIN 5.2 g/dL (6.4-8.2)
--- NOTE | 2017-11-22 04:50 | NUR ---
TYLENOL 650MG RECTAL VIA FECAL TUBE GIVEN FOR TEMP 102.7, REMAINS FEBRILE 103 ORAL, FAN REMAINS IN USE TO ASSIST WITH HYPERTHERMIA, ICE PACKS TO GROIN AND BILAT AXILLARY AREAS.
[2017-11-22 06:34] LABS: BE -3.4 mmol/L (-2 to +3); HCO3 21.2 mmol/L (22.0-26.0); PCO2 36.6 mmHg (35.0-45.0); PO2 90.6 mmHg (75.0-100.0); pH 7.381 (7.340-7.450)
--- NOTE | 2017-11-22 17:44 | NUR ---
PATIENT PROGRESSING WELL TOWARDS GOALS. SEDATION HAS BEEN DECREASED BY HALF THE DOSES STARTED WITH THIS AM. FOLLOWS COMMANDS APPROPRIATLEY, GETS AGITATED AT TIMES BUT EASILY CALMED. WEANING TRIAL IN THE AM. OG REPLACED TODAY AND TUBE FEEDING RESTARTED. TOLERATING WELL. FAMILY HAS BEEN IN AND OUT ALL DAY TODAY, UPDATES GIVEN. DOCUMENT CONTROLLER IN PLACE, BED IN LOWEST POSITION, BED ALARM ON, WILL CONTINUE TO MONITOR.
[2017-11-23] VITALS (14 sets, daily range): BP systolic 110–152; BP diastolic 59–98
[2017-11-23 04:18] LABS: HEMATOCRIT 31.2 % (42.0-52.0); HEMOGLOBIN 10.4 gm/dL (14.0-18.0); MCH 32.3 pg (26.0-34.0); MCHC 33.5 g/dL (28.0-37.0); MCV 96.6 fL (80.0-100.0); MPV 7.6 fl. (7.2-11.1); RBC 3.23 mil/uL (4.50-6.00); RDW-CV 12.3 % (10.5-14.5); WBC 19.7 thou/uL (4.0-11.0)
[2017-11-23 04:35] LABS: ALBUMIN 1.6 g/dL (3.4-5.0); CALCIUM 7.8 mg/dL (8.5-10.1); CREATININE 0.7 mg/dL (0.6-1.3); MAGNESIUM 1.9 mg/dL (1.8-2.4); TOTAL BILIRUBIN 0.4 mg/dL (<0.1-1.0)
--- NOTE | 2017-11-23 04:43 | NUR ---
AGITATED, UNABLE TO REDIRCET, THRASHING BODY AND KICKING FEET VIGORIOUSLY IN BED, BILAT SOFT WRIST RESTRAINTS REMAIN ON PER POLICY, X4 STAFF TO ROOM TO ASSIT WITH SAFETY AND RELAXATION, PT REMAINED PHYSICALLY AGRESSIVE, COMBATIVE, DANGER TO STAFF AND SELF, X4 RN UNABLE TO DE-ESCULATE PHYSICALLY VIOLENT SITUATION, SECURITY CALLED TO ROOM TO ASSIST, INCREASED VERSED GTT TO 10MG/HR AND FENTANYL GTT TO 100MCG/HR, BILAT ANKLE RESTRAINTS INITIATED WITH ASSIST X2 SECURITY GAURDS, DARK/QUIET ENVIORMENT PROVIDED, REMAINS DROWSY AROUSABLE TO ANY VERBAL OR TACTILE STIMULI.
--- NOTE | 2017-11-23 06:43 | NUR ---
TUBE FEEDING VIA OG TURNED OFF AT 0600 AND SEDATION STOPPED AT 0630 FOR AM TTUBE WEANING TRIAL, FEBRILE, TORADOL IVP GIVEN X2 PER ORDER EFFECTIVE HYPERTHERMIA MANAGEMENT, WILL FOLLOW SIMPLE COMMANDS AT TIMES, AGITATED/AGRESSIVE INTERMITTENTLY WITH ANY TYPE OF STIMULI, NSR/ST TRACING CARDIAC MONITIOR, FSBS WNL, MINIMAL SECRETIONS SUCTIONED FROM ORAL CAVITY AND ET INLINE TUBE, MORRIS CATHETER PATENT TO DD, FECAL MANAGEMENT SYSTEM 200CC LIQUID BROWN/GREEN DRAINAGE DURING SHIFT, INTERMITTENT BOWEL INCONTINENCE AROUND FECAL TUBE, FREQUENT ANTONIO CARE GIVEN PRN, BARRER CREAM TO COCCYX AFTER EACH INCONTINENT EPISODE AND PRN, BILAT MEDIAL UPPER THIGHS LATERAL TO SCROTUM REDDENED, NYSTATIN TO GAULDED AREAS PER ORDER, MORRIS PATENT TO DD.
--- NOTE | 2017-11-23 07:41 | NUR ---
DR BEARD HERE TO SEE PT, VERBAL ORDERS RECEIVED TO KEEP TUBE FEEDING ON HOLD AND OG TO LIS FOR TTUBE WHEENING TRIAL THIS AM. OG TO LIS ORDERED.
--- NOTE | 2017-11-23 07:49 | NUR ---
SPOKE WITH DR BEARD VIA TELEPHONE, PT NOW STARTING TTUBE WHEENING TRIAL, ORDERS RECIEVED TO COLLECT STAT BLOOD CULTURES AND SERUM LACTATE AFTER TTUBE TRIAL FINISHED THIS AM.
[2017-11-23 08:29] LABS: BE -1.4 mmol/L (-2 to +3); HCO3 23.3 mmol/L (22.0-26.0); PCO2 38.9 mmHg (35.0-45.0); PO2 87.9 mmHg (75.0-100.0); pH 7.395 (7.340-7.450)
--- NOTE | 2017-11-23 11:38 | NUR ---
PT EXTUBATED EARLIER THIS MORNING. IN THE PAST WEEK HAVE TALKED WITH , MOTHER, AND FATHER. ALL ARE SUPPORTIVE AND WANT PT TO GET HELP WITH HIS DRINKING. HAS A COPY OF ALCOHOL TREATMENT OPTIONS AND THE PHONE NUMBER FOR PT'S INSURANCE. IF PT WON'T AGREE TO TREATMENT AT DISCHARGE, HAS THE INFORMATION IF PT DECIDES HE WANTS HELP AFTER DISCHARGE.
[2017-11-23 13:41] LABS: SOURCE THORACENTESIS
[2017-11-23 13:41] LABS: SOURCE THORACENTESIS
--- NOTE | 2017-11-23 13:45 | NUR ---
WOUND CARE NOTE: REQUESTED TO SEE BY PATIENT'S RN FOR AREA TO SACRUM. PATIENT PRESENTS WITH A PARTIAL THICKNESS WOUND TO HIS SACRUM. AREA MEASURES 3.5X1X0.1. BLISTERING NOTED TO THE PROXIMAL ASPECT OF THE WOUND BED. DISTAL ASPECT IS PALE. ANTONIO-WOUND WITH WHAT APPEARS TO BE A CANDIDIA RASH. THIS RASH APPEARS TO EXTEND ANTERIORLY TO BILATERAL GROIN. AREA WAS CLEANSED, PATTED DRY. APPLIED OPTIFOAM AG. BELIEVE THIS IS A PARTIAL THICKNESS WOUND COMPLICATED BY HIS RESTLESSNESS AND CANDIDIA. EDUCATED PATIENT ON FINDINGS, BUT WILL NEED REINFORCEMENT HE IS STILL DROWSY. ALSO EDUCATED PATIENT ON THE NEED TO STAY OFF OF THE AREA, BUT WILL NEED REINFORCEMENT BECAUSE HE IS STILL DROWSY. RECOMMEND TURN Q2 HOURS-SIDE TO SIDE ENCOURAGE GOOD NUTRITION AND HYDRATION ONCE ABLE TO EAT HEAD OF BED <30 DEGREES IF ABLE TO TOLERATE
--- NOTE | 2017-11-23 15:29 | NUR ---
PT WAS EXTUBATED TODAY AROUND 1000. PT TOLERATED EXTUBATION WELL. PT IS STILL VERY AGIATED AND TRYING TO PULL LINES OUT. HE IS STILL IN RESTRAINTS DUE TO CONFUSION AND PULLING AT LINES. PT BECOMES TACHY IN THE 140'S WHEN AGITATED. ADEQUATE URINE OUTPUT. FAMILY UPDATED ON PLAN OF CARE.
[2017-11-23 21:47] LABS: URINE BILIRUBIN NEGATIVE (Negative); URINE BLOOD 1+ (Negative); URINE CLARITY CLEAR; URINE COLOR YELLOW; URINE GLUCOSE-RANDOM NEGATIVE (Negative); URINE KETONES 1+ (Negative); URINE LEUKOCYTES-REFLEX NEGATIVE (Negative); URINE NITRITE-REFLEX NEGATIVE (Negative); URINE PROTEIN NEGATIVE (Negative); URINE UROBILINOGEN 0.2 E.U./dl (0.2-1.0)
--- NOTE | 2017-11-23 22:45 | NUR ---
ORDER FOR GEODON WAS GIVEN 20MG IV Q 4HRS. MOTHER AND BROTHER AT BEDSIDE. ABOUT 20-30 MIN OF RECIEVING GEODON PT WAS VERY CALM AND WAS LYING STILL. HAD ALL RESTRAINTS OFF AT THAT TIME. FAMILY LEFT AND PT REMAINED CALM
[2017-11-23 23:33] LABS: CASTS None Seen /LPF (None Seen); SQUAMOUS NONE SEEN /LPF (0-3); URINE RBC 3-10 Few /HPF (0-2); URINE WBC-REFLEX None Seen /HPF (0-5)
[2017-11-23 23:34] LABS: BACTERIA-REFLEX None Seen /HPF (None Seen); CRYSTALS None Seen /LPF (None Seen)
[2017-11-24] VITALS (19 sets, daily range): BP systolic 130–175; BP diastolic 72–101
--- NOTE | 2017-11-24 | NUR ---
PT HAD A BOWEL MOVEMENT IN BED AND GOT VERY RESTLESS AND KICKING THE SIDE RAILS. GAVE THE ATIVAN AND HALDOL ORDERED AND GAVE PT BATH. AT THAT TIME FECAL TUBE WAS PLACED. 4PT RESTRAINTS WERE RE APPLIED. WILL CON'T TO MONITOR PT 1:1.
--- NOTE | 2017-11-24 01:18 | NUR ---
PT STILL AWAKE AND SITTING UP IN BED AFTER THE ATIVAN AND HALDOL. KEEP REMINDING PT TO LYE DOWN. PT REMAINS IN 4PT SOFT RESTRAINTS.
--- NOTE | 2017-11-24 02:04 | NUR ---
PT VERY AGGITATED AND RESTLESS. GAVE ATIVAN 3MG IV. WILL CON'T TO MONITOR
--- NOTE | 2017-11-24 02:30 | NUR ---
PT CLOSES HIS EYES BUT STILL VERY RESTLESS. DENNY AGARWAL GIVEN
--- NOTE | 2017-11-24 03:23 | NUR ---
ARASELI AGARWAL AROUND 0230. PT IS ASLEEP.
--- NOTE | 2017-11-24 04:29 | NUR ---
PT STILL SLEEPING BUT BECOMING RESTLESS GAVE THE PRN Q2 HR ATIVAN
--- NOTE | 2017-11-24 06:53 | NUR ---
PT HAS BEEN ASLEEP SINCE 299. PT WOKE UP AT 0610 AND BECAME RESTLESS. GAVE ORDERED HALDOL AND GEODON. PT REMAINS IN 4PT SOFT RESTRAINTS.
[2017-11-24 07:04] LABS: HEMATOCRIT 25.6 % (42.0-52.0); HEMOGLOBIN 8.9 gm/dL (14.0-18.0); MCH 33.2 pg (26.0-34.0); MCHC 34.7 g/dL (28.0-37.0); MCV 95.6 fL (80.0-100.0); RBC 2.68 mil/uL (4.50-6.00); RDW-CV 12.4 % (10.5-14.5); WBC 19.7 thou/uL (4.0-11.0)
--- NOTE | 2017-11-24 07:23 | EEG ---
[address] [address] EEG STUDY REPORT Name: KANDISWILL Room: [address] IN M.R.#: [id number] Admission: 11/12/17 Attend Phys: Nguyễn Millard MD Discharge: Date of : 90 Report #: [id number] THIS REPORT FOR: //name// CC: FAM physician/PCP Nguyễn Millard DATE OF SERVICE: 11/20/2017 DESCRIPTION: This patient's EEG was repeated to compare it with the last EEG. EEG was done by placing the electrodes by standard 10-20 system of electrode placement. Both referential and sequential montages were used for recording. Background activity in this patient's EEG is about 6-7 Hz and 30 microvolts. Photic stimulation is unremarkable. Throughout the record, no active epileptiform activity was noticed. IMPRESSION: This is an abnormal EEG, which is slow and poorly formed on both sides. That is a nonspecific abnormality, which can occur with encephalopathy, effect of psychotropic medication, etc. Clinical correlation is recommended. Thank you very much for this referral. <ELECTRONICALLY SIGNED> By: Ernesto Mendoza MD 11/24/17 0723 1731 [id number] Mendoza MD /nt
[2017-11-24 07:35] LABS: CALCIUM 8.3 mg/dL (8.5-10.1); CREATININE 0.7 mg/dL (0.6-1.3); POTASSIUM 3.3 mmol/L (3.5-5.1); TOTAL BILIRUBIN 0.5 mg/dL (<0.1-1.0); TOTAL PROTEIN 6.7 g/dL (6.4-8.2)
--- NOTE | 2017-11-24 12:25 | NUR ---
FAMILY IN ROOM PT AGITATED.SCEDULED ATIVAN GIVEN.
--- NOTE | 2017-11-24 17:06 | NUR ---
PT MORE CALM SINCE PRN MED OF GEODON GIVEN IM. MOTHER IN ROOM AT THIS TIME. FATHER AND BROTHER WERE IN ROOM EARLIER TODAY PT BECAME VERY RESTLESS AND AGITATED TOOK SEVERAL HOURS WITH SPIRATIC PRN MED FOR PT TO CALM. PT REMAINS CONFUSED. FECAL SAMPLE OBTAINED EARLIER WITH LAB REQUESTING MORE WILL PASS ON TO PM SHIFT. PT REMANS CONFUSED AND WHISPERS RESPONSES. CIWA SCORE HAS BEEN MUCH 15 THROUGH SHIFT.FOAM DRESSING REMAINS INTACT TO SACRAL AREA SINCE BEING PLACED EARLIER AT SHIFT CHANGE. PT ASKED IF HE DRINKS PT STATED NO. PT DOES KNOW FAMILY MEMBERS WHEN THEY VISIT.PT REMAINS NPO DUE TO FAILING SWALLOW EVAL 11/23/17.PT HAS DENIED ANY COMPLAINTS OF PAIN THROUGH SHIFT.
[2017-11-25] VITALS (10 sets, daily range): BP systolic 114–157; BP diastolic 59–91
--- NOTE | 2017-11-25 01:00 | NUR ---
PT HAS BEEN RESTLESS IN BED, THOUGH HE IS LESS AGITATED. PT IS 1:1 STATUS, THIS RN HAS REMAINED AT BEDSIDE. THEREFORE SOFT RESTRAINS TO BILATERAL ARMS AND LEGS HAVE BEEN UNTIED FOR APROXIMATELY 2 HOURS TO ALLOW PT FULL ROM ALL EXTREMITIES. PT IS IN NEAR CONSTANT MOTION IN BED, ATTEMPTS TO SIT UP BUT IS UNABLE TO DO SO DUE TO WEAKNESS. PT APPEARS TO BE RESPONDING TO INTERNAL STIMULI, OFTEN REACHING TOWARD UNSEEN ITEMS IN THE AIR ABOVE HIM. FREQUENT REORIENTATION TO REALITY AND REASSURANCE PROVIDED PT APPEARS FEARFUL AT TIMES. PT ATTEMPTS TO VERBALIZE BUT WORDS ARE VERY SOFT SPOKEN AND GARBLED MAKING IT DIFFICULT TO UNDERSTAND. IV PROCALAMINE INITIATED THIS EVENING. PT IS TURNED Q2HR USING PILLOWS HOWEVER HE DOES NOT MAINTAIN ANY ONE POSITION FOR ANY LENGTH OF TIME DUE TO RESTLESSNESS. HE TURNS HIMSELF COMPLETELY ONTO HIS SIDE WITH MINIMAL TO MODERATE ASSIST.
--- NOTE | 2017-11-25 05:44 | NUR ---
FLEXISEAL REMOVED DUE TO CONTINUAL LEAKAGE AROUND THE TUBE AND MINIMAL OUTPUT WITHIN THE TUBING.
[2017-11-25 05:55] LABS: HEMATOCRIT 30.5 % (42.0-52.0); HEMOGLOBIN 10.8 gm/dL (14.0-18.0); MCH 33.6 pg (26.0-34.0); MCHC 35.4 g/dL (28.0-37.0); MCV 94.8 fL (80.0-100.0); NUCLEATED RBCS 0 /100WBC; RBC 3.22 mil/uL (4.50-6.00); RDW-CV 12.5 % (10.5-14.5); WBC 17.5 thou/uL (4.0-11.0)
[2017-11-25 05:56] LABS: CALCIUM 8.5 mg/dL (8.5-10.1); CREATININE 0.8 mg/dL (0.6-1.3); POTASSIUM 3.6 mmol/L (3.5-5.1)
[2017-11-25 06:26] LABS: PLATELET COUNT* 690 thou/uL (150-400)
--- NOTE | 2017-11-25 06:33 | NUR ---
PT MAKING SOME PROGRESSION TOWARD GOALS. THROUGHOUT THE SHIFT HE HAS BECOME LESS AGITATED. BUE & BLE SOFT RESTRAINTS WERE REMOVED AT APPROXIMATELY 2300 AND WERE NOT REAPPLIED. PT IS CONFUSED AND REQUIRES FREQUENT REORIENTATION TO REALITY, HOWEVER BECAUSE OF 1:1 RN AT BEDSIDE HE CAN BE REDIRECTED WHEN ATTEMPTING TO GET OUT OF BED OR PULL AT LINES WITHOUT USE OF RESTRAINTS. COMPLETE BED BATH GIVEN. PT HAS BEEN TURNED Q2H OR MORE FREQUETLY HOWEVER HE DOES NOT MAINTAIN REPOSITIONING FOR ANY LENGTH OF TIME DUE TO CONTINUED RESTLESSNESS, THOUGH THIS ALSO HAS DECREASED THROUGH THE SHIFT. PT STILL MAKES ATTEMPTS TO SPEAK BUT SPEECH IS MUMBLED AND DIFFICULT TO UNDERSTAND. AT TIMES HE WILL NOW NOD/SHAKE HEAD WHEN ASKED YES/NO QUESTION. IVF AND PPN INFUSING ORDERED.
[2017-11-25 06:47] LABS: ABSOLUTE LYMPHOCYTES 1.8 thou/uL (0.8-5.3); ABSOLUTE MONOCYTES 0.5 thou/uL (0.0-1.2); ABSOLUTE NEUTROPHILS 15.2 thou/uL (1.6-8.1); ANISOCYTOSIS 1+; PLATELET ESTIMATE INCREASED; POIKILOCYTOSIS 1+
[2017-11-25 06:48] LABS: TOXIC GRANULATION Occasional
--- NOTE | 2017-11-25 08:01 | NUR ---
ASSUMED CARE OF PATIENT AT 0715. RECEIVED REPORT FROM CLERICAL PROOFREADER NURSE DIANN. ALL QUESTIONS ANSWERED. PATIENT IS CONFUSED AND RESTLESS BUT COOPERATIVE. SOME THINGS ARE EASILY UNDERSTOOD FROM PATIENT BUT OTHERS ARE NOT. PT HAS SITTER AT BEDSIDE, RESTRAINTS HAVE BEEN REMOVED. GOALS ARE TO REORIENT PATIENT TO REALITY, REMAIN SAFE AND FREE OF FALLS AND CONTINUE TO REMAIN OUT OF RESTRAINTS AND RESPOND TO SAFE LIMIT SETTING. BED IN LOWEST POSITION, BAND SINGER IN PLACE. CALL LIGHT IN REACH. SITTER AT BEDSIDE.
--- NOTE | 2017-11-25 10:39 | NUR ---
PT REMAINS CONFUSED, A LITTLE MORE REDIRECTABLE PER NURSING. NO FAMILY HERE AT THIS TIME.
--- NOTE | 2017-11-25 11:08 | NUR ---
PATIENT WAS ABLE TO GET UP TO A CHAIR WITH 1 TO 2 ASSIST AND GAIT BELT AND SIT UP FOR 30 MINS. BRUSHED TEETH SKILLED NURSING AND THEN NEEDED EXTRA HELP. WAS NOT QUITE READY TO BRUSH HAIR BUT SOMEWHAT ATTEMPTED. DID WELL WITH FOLLOWING COMMANDS FOR EXERCISING WITH OT. PATIENT IN BED AND RESTING AT THIS TIME.
--- NOTE | 2017-11-25 18:00 | NUR ---
PATIENT PROGRESSED WELL TOWARDS GOALS TODAY. WAS ABLE TO WALK THE UNIT WITH GAIT BELT AND WALKER ACROSS THE UNIT. MANY VISITORS TODAY. BY END OF SHIFT HE WAS ABLE TO ANSWER CORRECTLY MOST ORIENTATION QUESTIONS. STILL IMPULSIVE AT TIMES BUT EASILY REDIRECTABLE. HE STILL WHISPERS AT TIMES BUT SPEAKS UP WHEN FRUSTRATED. NO PAIN, NAUSEA OR SHORTNESS OR AIR. REMAINS ON ROOM AIR. HIGHEST TMEP WAS 99.5 TODAY. SITTER PRESENT AT BEDSIDE AT ALL TIMES DUE TO IMPULSIVENESE AND SAFTEY PRECAUTIONS. SODA MAKER IN PLACE. BED ALARM ON, BED IN LOWEST POSITION.
[2017-11-25 18:45] LABS: URINE BILIRUBIN 1+ (Negative); URINE BLOOD NEGATIVE (Negative); URINE CLARITY CLEAR; URINE COLOR YELLOW; URINE GLUCOSE-RANDOM NEGATIVE (Negative); URINE KETONES 2+ (Negative); URINE LEUKOCYTES-REFLEX NEGATIVE (Negative); URINE NITRITE-REFLEX NEGATIVE (Negative); URINE PROTEIN TRACE (Negative); URINE SPECIFIC GRAVITY 1.015 (1.005-1.030); URINE UROBILINOGEN 0.2 E.U./dl (0.2-1.0)
[2017-11-25 18:46] LABS: ICTOTEST (BILI CONFIRMATORY) Negative (Negative)
--- NOTE | 2017-11-25 22:45 | NUR ---
PT. DEVELOPED RASH ON UPPER BODY/BILAT ARMS. PT. HAS NOT RECEIVED ANY NEW MEDICATIONS, DR. NORM MALDONADOD. AWAITING CALL BACK.
[2017-11-26] VITALS (7 sets, daily range): BP systolic 123–158; BP diastolic 67–93
--- NOTE | 2017-11-26 05:31 | NUR ---
PT. HAS BEEN VERY RESTLESS/AGITATED THROUGHOUT SHIFT. SINUS TACHY. NOT EASILY REDIRECTED. HAS CONTINUOUSLY ATTEMPTED TO CLIMB OUT OF BED, SAYING HE "NEEDS TO GO HOME". STATED HE NEEDED ALCOHOL. ATTEMPTED TO HIT THIS RN AT ONE TIME. SLEEPS FOR 1-5 MINUTE INTERVALS ONLY. INCONTINENT OF BOWEL/URINE THROUGHOUT SHIFT, 6 COMPLETE BED CHANGES. IS CONTINENT OF URINE AT TIMES, ONLY 3 TIMES THIS SHIFT. ORIENTED TO ONLY PERSON. NURSE HAS BEEN AT BEDSIDE AT ALL TIMES TO MAINTAIN SAFETY, PT. IS VERY IMPULSIVE. HYPERTENSIVE. WILL CONTINUE TO MONITOR.
[2017-11-26 05:37] LABS: ABSOLUTE BASOPHILS 0.1 thou/uL (0.0-0.2); ABSOLUTE EOSINOPHILS 0.1 thou/uL (0.0-0.7); ABSOLUTE LYMPHOCYTES 1.8 thou/uL (0.8-5.3); ABSOLUTE MONOCYTES 1.6 thou/uL (0.0-1.2); ABSOLUTE NEUTROPHILS 14.8 thou/uL (1.6-8.1); BASOPHILS 0.7 %; EOSINOPHILS 0.8 %; HEMATOCRIT 32.3 % (42.0-52.0); HEMOGLOBIN 11.3 gm/dL (14.0-18.0); LYMPHOCYTES 9.7 %; MCH 33.3 pg (26.0-34.0); MCHC 35.1 g/dL (28.0-37.0); MCV 94.9 fL (80.0-100.0); MONOCYTES 8.7 %; MPV 7.5 fl. (7.2-11.1); NUCLEATED RBCS 0 /100WBC; POLYS 80.1 %; RBC 3.41 mil/uL (4.50-6.00); RDW-CV 12.5 % (10.5-14.5); WBC 18.5 thou/uL (4.0-11.0)
[2017-11-26 05:42] LABS: CALCIUM 8.6 mg/dL (8.5-10.1); CREATININE 0.8 mg/dL (0.6-1.3); MAGNESIUM 2.2 mg/dL (1.8-2.4); POTASSIUM 3.6 mmol/L (3.5-5.1)
[2017-11-26 05:43] LABS: PLATELET COUNT* 781 thou/uL (150-400)
[2017-11-26 06:03] LABS: ALBUMIN 2.6 g/dL (3.4-5.0); CALCIUM 8.7 mg/dL (8.5-10.1); CREATININE 0.8 mg/dL (0.6-1.3); POTASSIUM 3.9 mmol/L (3.5-5.1); TOTAL BILIRUBIN 0.5 mg/dL (<0.1-1.0); TOTAL PROTEIN 7.3 g/dL (6.4-8.2)
--- NOTE | 2017-11-26 17:10 | NUR ---
PATIENT TOOK 2 HOUR NAP AND WOKE UP CLEAR HEADED. SPENT TIME TALKING TO PATIENT ABOUT THE PAST TWO WEEKS OF HIM IN THE HOSPITAL AND WHAT LED UP TO THE EVENTS. PATIENT UNDERSTOOD WHAT WAS SAID AND IS ANSWERING QUESTIONS APPROPRIATELY. CALM AND COOPERATIVE, CALLED AND UPDATED ON STATUS, AT BEDSIDE NOW WITH SON VISITING PATIENT.
--- NOTE | 2017-11-26 18:45 | NUR ---
PATIENT RESTING IN BED AT THIS TIME, AND MOM AT BEDSIDE. PATIENT IS CONFUSED AT TIMES BUT IS MUCH MORE ALERT AND ORIENTED. SLEPT ABOUT 2 HOURS AND 15 MINS TODAY AND WOKE UP MORE HIMSELF. SELF CARE BATH DONE TODAY, TEETH BRUSHED SELF. DIARRHEA STILL PERSISTS BUT PATIENT IS NOW CONTINENT OF BLADDER AND BOWEL. VITALS REMAIN STABLE, NO PAIN, NAUSEA OR SHORTNESS OF AIR. GOALS WERE MET TODAY. BED IN LOWEST POSITION, CALL LIGHT IN REACH, BED ALARM ON, FALL PRECAUTIONS IN PLACE. WILL CONTINUE TO MONITOR.
[2017-11-27 02:56] VITALS: BP 124/67
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
[2017-11-27 07:00] VITALS: BP 113/74
[2017-11-27 08:00] VITALS: BP 113/74
[2017-11-27 09:47] LABS: HEMATOCRIT 37.1 % (42.0-52.0); HEMOGLOBIN 12.2 gm/dL (14.0-18.0); MCH 32.2 pg (26.0-34.0); MCHC 32.8 g/dL (28.0-37.0); MCV 98.3 fL (80.0-100.0); MPV 7.9 fl. (7.2-11.1); NUCLEATED RBCS 0 /100WBC; PLATELET COUNT* 811 thou/uL (150-400); RBC 3.78 mil/uL (4.50-6.00); RDW-CV 12.6 % (10.5-14.5); WBC 17.3 thou/uL (4.0-11.0)
[2017-11-27 09:53] LABS: ALBUMIN 2.4 g/dL (3.4-5.0); CALCIUM 8.7 mg/dL (8.5-10.1); CREATININE 0.8 mg/dL (0.6-1.3); POTASSIUM 5.1 mmol/L (3.5-5.1); TOTAL BILIRUBIN 0.5 mg/dL (<0.1-1.0); TOTAL PROTEIN 7.3 g/dL (6.4-8.2)
[2017-11-27 10:30] LABS: ABSOLUTE EOSINOPHILS 0.3 thou/uL (0.0-0.7); ABSOLUTE LYMPHOCYTES 1.4 thou/uL (0.8-5.3); ABSOLUTE MONOCYTES 0.3 thou/uL (0.0-1.2); ABSOLUTE NEUTROPHILS 15.2 thou/uL (1.6-8.1); MYELOCYTES 2 %; PLATELET ESTIMATE INCREASED; TOXIC GRANULATION 1+
[2017-11-27 10:31] LABS: ANISOCYTOSIS 1+; POIKILOCYTOSIS 1+; POLYCHROMASIA 1+
[2017-11-27 12:00] VITALS: BP 107/62
[2017-11-27 13:00] VITALS: BP 115/56
--- NOTE | 2017-11-27 13:00 | NUR ---
ASSUMED CARE OF PATIENT AT THIS TIME. PATIENT SETTLED TO ROOM. FAMILY AND SITTER AT BEDSIDE.
--- NOTE | 2017-11-27 19:25 | NUR ---
PATIENT RESTING IN BED. PATIENT DENIES ANY PAIN. PATIENT IS UP STANDBY ASSIST TO BATHROOM. PATIENT IS ALERT, ORIENTED TO PERSON/PLACE WITH INTERMITTENT DISORIENTATION. PATIENT HAS FAMILY AT BEDSIDE, SITTER AVAILABLE WHEN FAMILY OUT OF ROOM. PATIENT DENIES ANY NEEDS AT THIS TIME. BED ALARM ON. WILL CONTINUE TO MONITOR.
[2017-11-27 20:00] VITALS: BP 136/67
[2017-11-28] VITALS: BP 115/66
[2017-11-28 03:33] VITALS: BP 120/72
[2017-11-28 06:33] LABS: HEMATOCRIT 33.7 % (42.0-52.0); HEMOGLOBIN 11.4 gm/dL (14.0-18.0); MCH 32.6 pg (26.0-34.0); MCV 95.9 fL (80.0-100.0); MPV 7.2 fl. (7.2-11.1); RBC 3.51 mil/uL (4.50-6.00); RDW-CV 12.4 % (10.5-14.5); WBC 17.8 thou/uL (4.0-11.0)
[2017-11-28 06:42] LABS: ALBUMIN 2.7 g/dL (3.4-5.0); CALCIUM 8.7 mg/dL (8.5-10.1); CREATININE 0.9 mg/dL (0.6-1.3); POTASSIUM 4.4 mmol/L (3.5-5.1); TOTAL BILIRUBIN 0.4 mg/dL (<0.1-1.0); TOTAL PROTEIN 7.5 g/dL (6.4-8.2)
--- NOTE | 2017-11-28 06:49 | NUR ---
ASSUMED PATIETN CARE AT 1900. ZOILAEITN ALERT AND ORIENTED TIMES 4 WITH SOME CONFUSION AND HALLUCINATIONS. IV PATENT TO INFUSING FLUIDS, ORDER FOUND TO DC FLUIDS IF PATIENT HAD CONSUMED AT LEAST 50% OF 2 MEALS. THIS WAS ACCOMPLISHED AND FLUIDS DC'D. LINES ARE NOT PATENT TO BLOOD DRAW. UP TO THE SHOWER THIS AM. SINUS TACHYCARDIA ON THE MONITOR. HAS BEEN UP AD ANGELLA THIS AM WITH NO ISSUES. FLOWER MACHINE OPERATOR AND CATRACHITAURLY ROUNDING COMPLETED DOCUMENTED.
[2017-11-28 08:50] VITALS: BP 113/61
[2017-11-28 16:13] VITALS: BP 111/61
--- NOTE | 2017-11-28 18:28 | NUR ---
PT IS ALERT AND ORIENTED X3, WITH SOME CONFUSION, CONFUSED TO TIME. PT IS SR ON TELE. PT HAS R UPPER ARM PICC. TPN DC. MULTIVITAMIN IV DC, SWITCHED TO PO. PT IS ON RA, LUNGS CLEAR. VOICE IS SOFT, NO COUGH PRESENT. PT HAS WOUND ON RT BUTTOCK COVERED WITH MEPIPLEX. PT IS UP AD ANGELLA, SLIGHT TREMORS OF HANDS PRESENT WITH MOVEMENT. STEADY GAIT WHILE AMBULATING, PT HAS BEEN AMBULATING DOWN THE HALLS WITH FAMILY. PT IS A FALL RISK, FALL RISK PRECAUTIONS IN PLACE. POSSIBLE DC ON THURSDAY, PT WANTS TO GO HOME, FAMILY WORRIED ABOUT PT HAVING HALLUCINATIONS AT HOME. WILL CONTINUE TO MONITOR.
--- NOTE | 2017-11-28 19:11 | NUR ---
I HAVE READ AND REVIEWED THE DOCMENTATION BY ELVIRA CHRISTIAN, STUDENT NURSE AND AGREE WITH THE DOCUMENTED INTERVENTIONS AND ASSESSMENTS.
[2017-11-28 20:05] VITALS: BP 120/73
[2017-11-28 23:15] VITALS: BP 119/64
[2017-11-29 03:40] VITALS: BP 118/67
--- NOTE | 2017-11-29 06:21 | NUR ---
PT SLEPT FAIRLY WELL OVERNIGHT, AWAKE WATCHING TV SOME. DENIES PAIN OR PROBLEMS. FAINT HAND TREMORS. AOX4, DENIES HALLUCINATIONS. HOPEFUL FOR DC HOME TODAY. UP TO SHOWER THIS MORNING. CECIL GABRIEL. TELE SR. AM LABS DRAWN. UP AD ANGELLA IN ROOM WITH STEADY GAIT. ABLE TO USE CALL LITE AND MAKE NEEDS KNOWN.
[2017-11-29 07:21] LABS: ABSOLUTE BASOPHILS 0.2 thou/uL (0.0-0.2); ABSOLUTE EOSINOPHILS 0.3 thou/uL (0.0-0.7); ABSOLUTE LYMPHOCYTES 2.7 thou/uL (0.8-5.3); ABSOLUTE MONOCYTES 1.3 thou/uL (0.0-1.2); ABSOLUTE NEUTROPHILS 12.9 thou/uL (1.6-8.1); BASOPHILS 0.9 %; EOSINOPHILS 1.5 %; HEMATOCRIT 35.2 % (42.0-52.0); HEMOGLOBIN 11.8 gm/dL (14.0-18.0); LYMPHOCYTES 15.6 %; MCH 32.2 pg (26.0-34.0); MCHC 33.7 g/dL (28.0-37.0); MCV 95.6 fL (80.0-100.0); MONOCYTES 7.3 %; MPV 8.2 fl. (7.2-11.1); NUCLEATED RBCS 0 /100WBC; POLYS 74.7 %; RBC 3.68 mil/uL (4.50-6.00); RDW-CV 12.8 % (10.5-14.5); WBC 17.2 thou/uL (4.0-11.0)
[2017-11-29 07:24] LABS: CALCIUM 9.3 mg/dL (8.5-10.1); CREATININE 0.8 mg/dL (0.6-1.3); POTASSIUM 4.8 mmol/L (3.5-5.1)
[2017-11-29 07:41] LABS: PLATELET COUNT* 951 thou/uL (150-400)
[2017-11-29 07:50] VITALS: BP 107/60
[2017-11-29] MEDS ORDERED: ASPIR 8181 MG PO (09:58)
[2017-11-29] MEDS ORDERED: IBUPROFEN 200200 M1 PO (10:01)
[2017-11-29] MEDS ORDERED: PRENATAL PO (10:01)
[2017-11-29 10:04] VITALS: BP 107/60
--- NOTE | 2017-11-29 10:40 | NUR ---
PATIENT DISCHARGED TO HOME. DISCHARGE PAPERS REVIEWED AND SIGNED. NO PRESCRIPTIONS. INFORMATION GIVEN ON ASPIRIN AND . PATIENT EDUCATED ON FINDING PRIMARY CARE PHYSICIAN AND STARTING AA. PICC LINE REMOVED AND PRESSURE DRESSING APPLIED. PATIENT DENIES ANY FURTHER NEEDS. PATIENT TAKEN AMBULATORY TO EXIT. LEFT WITH .
== END 2017-11-29 10:40 | disposition home or self-care (01) | DRG 870 ==
LOC: M.ERS 18:56 → M.TBA-ER 22:13 → M.ORTHSURG 22:13 → M.ICU 11-14 01:12 → M.3W 11-27 12:57
PROVIDERS: Family Medicine; Internal Medicine; Internal Medicine Critical Care Medicine; Internal Medicine Gastroenterology; Internal Medicine Pulmonary Disease; Physician Assistant; Specialist; ADMIT Internal Medicine
PROC: 02HV33Z Insertion of Infusion Device into Superior Vena Cava, Percutaneous Approach (ICD-10-PCS; principal; 2017-11-15)
PROC: 0BH17EZ Insertion of Endotracheal Airway into Trachea, Via Natural or Artificial Opening (ICD-10-PCS; principal; 2017-11-15)
PROC: 5A1955Z Respiratory Ventilation, Greater than 96 Consecutive Hours (ICD-10-PCS; principal; 2017-11-15)
PROC: B548ZZA Ultrasonography of Superior Vena Cava, Guidance (ICD-10-PCS; principal; 2017-11-15)
PROC: 0W993ZZ Drainage of Right Pleural Cavity, Percutaneous Approach (ICD-10-PCS; 2017-11-20)
PROC: 0W9B3ZZ Drainage of Left Pleural Cavity, Percutaneous Approach (ICD-10-PCS; 2017-11-20)
DX: A41.9 Sepsis, unspecified organism (principal); J69.0 Pneumonitis due to inhalation of food and vomit; G93.40 Encephalopathy, unspecified; K85.20 Alcohol induced acute pancreatitis without necrosis or infection; J96.02 Acute respiratory failure with hypercapnia; J96.01 Acute respiratory failure with hypoxia; F10.231 Alcohol dependence with withdrawal delirium; S37.39XA Other injury of urethra, initial encounter; E46 Unspecified protein-calorie malnutrition; B37.0 Candidal stomatitis; E87.6 Hypokalemia; D69.6 Thrombocytopenia, unspecified; E83.42 Hypomagnesemia; K70.10 Alcoholic hepatitis without ascites; X58.XXXA Exposure to other specified factors, initial encounter; D47.3 Essential (hemorrhagic) thrombocythemia; Z88.2 Allergy status to sulfonamides; Y93.89 Activity, other specified; Y92.89 Other specified places as the place of occurrence of the external cause; Y99.8 Other external cause status; Z22.321 Carrier or suspected carrier of Methicillin susceptible Staphylococcus aureus; F10.220 Alcohol dependence with intoxication, uncomplicated; T83.021A Displacement of indwelling urethral catheter, initial encounter